=== PATIENT | female | born 1990 | race Caucasian/White ===

== ENCOUNTER → 2022-09-21 14:53 | Outpatient (BNVA) | payer OTHER, SELFPAY | PROVIDERS: PCP Internal Medicine; Visit Provider Nurse Practitioner Family | DX: G43.809 Other migraine, not intractable, without status migrainosus (principal); R42 Dizziness and giddiness | CPT/HCPCS: 99202 ==

== ENCOUNTER → 2022-12-27 15:37 | Outpatient (BNVA) | payer OTHER, SELFPAY | PROVIDERS: PCP Internal Medicine; Visit Provider Nurse Practitioner Family | DX: G43.809 Other migraine, not intractable, without status migrainosus (principal); R42 Dizziness and giddiness | CPT/HCPCS: 99212 ==

== ENCOUNTER 2024-06-15 10:46 | Outpatient (AMB) | payer OTHER, SELFPAY ==
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
[2024-06-15 10:59] VITALS: BP 114/78; PULSE 82; O2SAT 98; BMI 27.8
== END 2024-06-15 11:42 | disposition home or self-care (01) ==
PROVIDERS: PCP Internal Medicine; Visit Provider Nurse Practitioner Family
DX: S06.9X9A Unspecified intracranial injury with loss of consciousness of unspecified duration, initial encounter (principal); R90.82 White matter disease, unspecified; G43.809 Other migraine, not intractable, without status migrainosus
CPT/HCPCS: 99214

== ENCOUNTER → 2024-06-15 10:46 | Outpatient (BNVA) | payer OTHER, SELFPAY | PROVIDERS: PCP Internal Medicine; Visit Provider Nurse Practitioner Family | DX: S06.9X9A Unspecified intracranial injury with loss of consciousness of unspecified duration, initial encounter (principal); R90.82 White matter disease, unspecified; G43.809 Other migraine, not intractable, without status migrainosus | CPT/HCPCS: 99212 ==

== ENCOUNTER 2024-11-24 08:37 | Outpatient (AMB) | payer OTHER, SELFPAY ==
--- NOTE | 2024-11-24 08:39 | MHC.PC.OV ---
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 Is last menstrual period known: Yes Last menstrual period: 11/17/24 Post menopausal: No Patient : No Allergies No Known Allergies Allergy (Verified 11/24/24 09:03) Medication List - Last Reconciled 11/24/24 by Carolina Jeffery CNP cholecalciferol (vitamin D3) 25 mcg PO DAILY cyanocobalamin (vitamin B-12) (Vitamin B-12) 500 mcg PO DAILY magnesium oxide 400 mg PO BEDTIME 30 days meclizine 25 mg PO TID PRN 30 days Tobacco use date assessed: 11/24/24 Dental Screening Dental Screen Date: 11/24/24 Did you have a dental visit in the last 12 months?: Yes Did you have a dental problem in the last 6 months where you did not have access to dental care?: No Was dental information given to patient?: Patient has dentist HPI HPI Comments History of Present Illness Details 34-year-old female presents to establish care. Prior PCP? - Sindy Skaggs NP Last office visit/CPE/labs - 2.5 years ago Acute issue(s) - None Past Medical History - Migraine headaches, palpitations, vitamin D deficiency, vertigo, shingles, myopia, white matter abnormality on brain MRI Medications - On magnesium oxide 400 mg daily, Vitamin B12 500 mcg, and Migrelife supplements for migraine - On Meclizine 25 mg TID PRN for vertigo - On vitamin D3 25 mcg daily for vitamin D deficiency Surgical History - None Family History - Dad: Hyperlipidemia - Mom: Diabetes, hyperlipidemia - PGM: Cardiovascular disease Social History - Former smoker, smoked 3-4 cigarettes daily and quit 4 years ago. Does not vape. Does not drink alcohol. Denies recreational drug use - Has been making healthy dietary choices. Exercises routinely (walk). Generally sleep well Health maintenance - Last eye exam was almost a year ago. Has an eye exam appointment next month - Last dental visit was 6 months ago - Last tetanus vaccine was in 07/2023 - Up-to-date on the flu vaccine - Last pap smear test was in 09/2022 at [facility]: normal [facility] Medical History (Updated 11/24/24 @ 09:24 by Carolina Jeffery CNP) Shingles History of migraine headaches Heart palpitations Family History (Updated 11/24/24 @ 08:52 by Maggie Doyle) Maternal Grandfather No problems noted. Maternal Grandmother No problems noted. Paternal Grandfather No problems noted. Paternal Grandmother Cardiovascular disease Brother Substance abuse Father High cholesterol Mother High cholesterol Diabetes Social History Housing: House Alcohol intake: never Patient Tobacco Use Status: Former Tobacco user e-Cigarette/Vaping Use: Never Used service: No Current occupational status: employed Current occupation: RN Current occupational exposures/hazards: No Cognitive needs: No Hearing needs: No Vision needs: Yes Female Reproductive History Menstrual Date of last menstrual period: 11/17/24 Questionnaire PHQ-9 Over the last 2 weeks, how often have you been bothered by any of the following problems? 1. Little interest or pleasure in doing things: not at all 2. Feeling down, depressed, or hopeless: not at all 3. Trouble falling or staying asleep, or sleeping too much: more than half the days 4. Feeling tired or having little energy: more than half the days 5. Poor appetite or overeating: not at all 6. Feeling bad about yourself - or that you are a failure or have let yourself or your family down: not at all 7. Trouble concentrating on things, such as reading the newspaper or watching television: not at all 8. Moving or speaking so slowly that other people could have noticed. Or the opposite - being so fidgety or restless that you have been moving around a lot more than usual: not at all 9. Thoughts that you would be better off or of hurting yourself in some way: not at all Total score: 4 Depression Screening Interpretation: Negative Depression Screening Done: Yes 29774 - PHQ-9 Billing: Yes Source: Developed by Drs. Mata Cano, Giulia Huang, Marcin Watkins and colleagues, with an educational rahul from [employer] ([employer]). Thrive Questionnaire Date Thrive assessed: 11/24/24 I am a: Patient What is your living situation today?: I have a steady place to live Within the past 12 months, did the food you bought not last and you didn't have the money to get more?: Never true Within the past 12 months, did you worry whether your food would run out before you got money to buy more?: Never true Do you have trouble paying for medicines?: No Do you have trouble getting transportation to medical appointments?: No Do you have trouble paying your heating and electricity bill?: No Do you have trouble taking care of your child, family member or friend?: No Do you have trouble with day-to-day activities such as bathing, preparing meals, shopping, managing finances, etc.?: No Are you currently unemployed and looking for a job?: No Are you interested in more education?: No Please select the resources that you would like help with: None Currently or been in a relationship where the following occur: I choose not to answer THRIVE Score: 0 AUDIT C Alcohol Use Questionnaire (AUDIT-C) 1. How often do you have a drink containing alcohol?: Never Total Score: 0 Score Reviewed/Action Taken: Yes QUIRINO-7 AMB Questionnaire QUIRINO-7 Date QUIRINO - 7 assessed: 11/24/24 Feeling nervous, anxious, or on edge: 0 = Not at all Not being able to stop or control worryin = Not at all Worrying too much about different things: 0 = Not at all Trouble relaxin = Not at all Being so restless that it is hard to sit still: 0 = Not at all Becoming easily annoyed or irritable: 0 = Not at all Feeling afraid as if something awful might happen: 0 = Not at all Total QUIRINO-7 score (0-4 normal; 5-9 mild; 10-14 moderate; 15-21 severe): 0 Source: Developed by Drs. Mata Cano, Giulia Huang, Marcin Watkins and colleagues, with an educational rahul from [employer] ([employer]). QUIRINO-7 Assessment Billing QUIRINO-7 Assessment Tool: QUIRINO-7 Assessment 41162 Review of Systems Const Details: Denies chills, Denies fatigue, Denies fever(s), Denies headache(s) and Denies weakness HEENT Denies change in vision, Denies dizziness, Denies headache(s), Denies hearing loss, Denies nasal congestion, Denies sinus pain, Denies sinus pressure and Denies sore throat Card Denies chest pain, Denies lightheadedness, Denies dyspnea and Denies other (palpitations) Resp Denies cough, Denies dyspnea and Denies wheezing GI Denies abdominal pain, Denies melena, Denies hematochezia, Denies change in bowel habits, Denies dyspepsia and Denies nausea Denies hematuria and Denies dysuria Musc Denies abnormal gait, Denies myalgias, Denies arthralgias, Denies numbness and Denies tingling Skin/Breast Denies rash, Denies unusual bruising and Denies wounds Neuro Denies abnormal gait, Denies dizziness, Denies headache(s), Denies memory loss, Denies numbness, Denies Sensory deficit (Neuro), Denies tingling and Denies weakness Psych Denies anxiety, Denies depression and Denies memory loss Endo Denies cold intolerance, Denies fatigue, Denies heat intolerance, Denies polydipsia and Denies polyuria Ricardo/Lymph Denies easy bleeding and Denies easy bruising Aller/Immun Denies wheezing Physical exam (Primary Care) Vital Signs: Last Vital Signs Temp 98.8 F 11/24/24 08:45 Pulse 89 11/24/24 08:45 Resp 16 11/24/24 08:45 BP 126/84 11/24/24 08:45 Pulse Ox 99 11/24/24 08:45 Oxygen Delivery Method Room Air 11/24/24 08:45 BMI result Body Mass Index 28.0 Tobacco/Smoking Status: Tobacco use Status Tobacco use date assessed 11/24/24 11/24/24 08:45 Patient Tobacco Use Status Former Tobacco user 11/24/24 08:41 e-Cigarette/Vaping Use Never Used 11/24/24 08:45 PHQ-9: PHQ-9 Score PHQ-9: Total score 4 11/24/24 09:34 Depression Screening Interpretation: Negative Thrive Assessment: Date of Thrive Assessment Date Thrive assessed 11/24/24 11/24/24 08:41 Currently or been in a relationship where the following occur: I choose not to answer Const Other: General: no acute distress, well developed, alert and awake Nutritional Appearance: well nourished Orientation/consciousness: patient oriented x3 [facility] Head: Yes normocephalic and Yes atraumatic Ears: hearing grossly normal bilaterally and TM's normal bilaterally General nose exam: Normal external nose present and Normal nares present Mouth: Normal oral and palatal mucosa present and moist mucous membranes Teeth and gingiva: dentition normal Throat: Yes oropharynx normal Eyes Pupils: Equal, round and reactive pupils present and Pupil accommodation reflex normal EOM: EOMs intact bilaterally Neck Neck: Yes normal visual inspection, Yes no lymphadenopathy and Yes trachea midline Thyroid: Thyroid normal Carotids: no bruits Lymphatic: no lymphadenopathy noted Chest Chest palpation & inspection: normal inspection of the chest Resp Effort & Inspection: normal respiratory effort Auscultation: clear to auscultation bilaterally Cardio Rate: regular rate Rhythm: regular rhythm Heart sounds: S1 normal heart sound present, S2 normal heart sound present, no gallops, no murmurs and no rubs Bruits: no abdominal aortic bruits and no carotid bruits GI Palpation (GI): No Abdominal aortic bruit present, Soft to palpation, nontender, No hepatosplenomegaly present and No Rebound tenderness present Auscultation: normal bowel sounds General: Yes no CVA tenderness Back/Spine/Pelvis Back: no CVA tenderness Cervical Spine: cervical ROM normal and No Cervical spine tenderness Thoracic/Lumbar Spine: thoraco-lumbar ROM normal, No pain with thoraco-lumbar ROM, No thoracic spinal tenderness and No lumbar spinal tenderness Skin General: warm and dry. Normal skin color. Normal skin turgor Lesions: no lesions Rashes: no rashes Trauma: no lacerations or abrasions Wounds: no wounds Nails: normal Neuro General: patient oriented x3, gait normal and CN's II-XI intact bilaterally Cranial nerves: Yes Equal, round and reactive pupils present Cognition (Neuro): normal cognition Gait exam (Neuro): Normal gait present Motor exam (neuro): 5/5 motor strength present throughout Sensory Exam: No Sensory deficit (Neuro) Deep tendon reflexes (DTR's): Right patellar reflex intensity grade: 2+ and Left patellar reflex intensity grade: 2+ Extrem General: Yes normal to inspection, No edema and No calf tenderness Psych Appearance: grossly normal Affect: normal affect Attitude: cooperative Thought process: Normal thought process present Coding Level of Care Code New Pt Prev Care 18-39yr(40575 Diagnoses Normal physical examination, routine Z00.00 Vitamin D deficiency E55.9 Laboratory tests ordered as part of a complete physical exam (CPE) Z00.00 Additional Codes QUIRINO-7 Assessment Billing - QUIRINO-7 Assessment Tool: QUIRINO-7 Assessment 14160 ([id number]) PHQ-9 - 81738 - PHQ-9 Billing: Yes ([id number]) Assessment & Plan Assessment & Plan (1) Normal physical examination, routine: Code(s): Z00.00 - Encounter for general adult medical examination without abnormal findings Category: Medical Plan: No significant functional limitation noted. Continue current treatment regimen. Healthy diet and routine exercise encouraged. Advised to get lab work done 2-3 days before next visit. Follow-up for telehealth visit in 2 weeks or return sooner with symptoms or concerns. Verbalized understanding and agreed with the treatment plan. (2) Vitamin D deficiency: Code(s): E55.9 - Vitamin D deficiency, unspecified Category: Medical Plan: Continue current treatment. Will check vitamin-D level and make changes as needed. (3) Laboratory tests ordered as part of a complete physical exam (CPE): Code(s): Z00.00 - Encounter for general adult medical examination without abnormal findings Category: Medical Plan: Fasting labs ordered as part of a complete physical exam. Advised to fast for at least 10 hours before getting labs drawn. May drink water Verbalized understanding and agreed with treatment plan. Orders: Orders Complete Blood Count Auto Diff Today Z00.00 - Encounter for general adult medical examination without abnormal findings Comprehensive [place]. Panel Fast Today Z00.00 - Encounter for general adult medical examination without abnormal findings Lipid Panel Today Z00.00 - Encounter for general adult medical examination without abnormal findings TSH reflex Free T4 Today Z00.00 - Encounter for general adult medical examination without abnormal findings Vitamin D 25-OH Total Today E55.9 - Vitamin D deficiency, unspecified UA CC w/rflx Micro + Cult Today Z00.00 - Encounter for general adult medical examination without abnormal findings
[2024-11-24 08:45] VITALS: BP 126/84; PULSE 89; RESP 16; TEMP 37.1; O2SAT 99; BMI 28.0
--- OUTSIDE RECORDS SUMMARY | 2024-11-24 08:46 | XMS_ITS | Data Portability ---
Author Organization [facility] [address] Address [address] [place] [address] Assessment No assessment recorded. Plan of Treatment Reminders Order Date Submit Date Provider Last Modified By Organization Details Last Modified Time Details Appointments None recorded. Lab None recorded. Referral None recorded. Procedures None recorded. Surgeries None recorded. Imaging None recorded. Medication Orders valacyclovi r 1 gram tablet 2023 [id number], [address] [place], [address], 09:20:55 Patient TargetsNo targets recorded. Patient Instructions Encounter Date Encounter Id Patient Instructions Last Modified By Organization Details Last Modified Time 07/11/2024 [id number] shingles: care instructions [email or web address] Not available 07/11/2024 09:20:52 Reason for Referral None Reported. Problems Name Problem SNOMED Code Status Onset Date Resolution Date Notes Provider Name and Address Organization Details Recorded Time Herpes zoster [id number] Active 024 Claudia Jennings NP [address] [place] [address] [place], [address] , [facility] 07/11/2024 09:19:43 Problem Notes None recorded. Medical Equipment None Reported. Allergies No known drug allergies Medications Name Sig Start Date Stop Date Status Note LastModified by Organization Details LastModified Time amoxicillin 500 mg capsule TAKE 1 TABLET BY MOUTH EVERY 6 HOURS UNTIL GONE 07/11 completed Not Available Not Available Not Available valacyclovir 1 gram tablet Take 1 tablet every 12 hours by oral route for 7 days, for shingle s. 2023 active Not Available Not Available Not Avai lable Vitals Date Recorded Body height Body mass index (BMI) Body weight Oxygen saturation Oxygen saturation in Arterial blood by Pulse oximetry Heart rate Body temperature Systolic blood pressure Diastolic blood pressure Provider Name and Address Organization Details Last Updated DateTime 4 167.64 cm 27.6 kg/m2 40244.3 g 99 % 99 % 79 /min 98.3 [degF] 117 mm[Hg] 76 mm[Hg] Mely Hardin PA - [facility] 4 08:36:39 Social History Question Answer Notes LastModified by Organizat ion Details LastModified Time What Is Your Level Of Alcohol Consumption? None Information not available 07/11/2024 Are You Currently Employed? Yes Information not available 07/11/2024 Have You Had A Flu Shot This Season? Yes Information no t available 07/11/2024 If No, Would You Like A Flu Shot Today? No Information not available 07/11/2024 What Is Your Relationship Status? Information not available 07/11/2024 Are You Passively Exposed To Smoke? No Information no t available 07/11/2024 Do You Use Any Illicit Or Recreational Drugs? No Information not available 07/11/2024 Have You Recently Traveled Abroad? No Information not available 07/11/2024 Do You Or Have You Ever Used Any Other Forms Of Tobacco Or Nicotine? No Information not available 07/11/2024 Sex: Unknown Functional Status None recorded. Mental Status None recorded. Family History Nothing Reported. Medical History No medical history recorded. Gynecological History Statement/Question Response Date of LMP 07/01/2024 Is there any chance of ? No LMP N/A Obstetrics History GPAL:G 0 P 0 0 0 0 Past Encounters Encounter ID Performer Location Encounter Start Date Encounter Closed Date Diagnosis/Indication Diagnosis SNOMED-CT Code Diagnosis ICD10 Code [id number] [address] [address] 08/11/2020 17:17:56 08/11/2020 17:53:[id number] [address] 01/11/2022 15:05:53 01/11/2022 17:40:13 [id number] [address] [place] [address] 02/03/2020 11:44:52 02/03/2020 13:18:39 [id number] Claudia Jennings NP [address] [place] [address] 07/11/2024 08:18:40 07/11/2024 09:22:45 Herpes zoster [id number] B02.9 Health Concerns Section Related Observation LastModified by Organization Detai ls LastModified Time None Recorded Concern Status LastModified by Organization Details LastModified Time None Recorded Advance Directives Directive None Recorded Payers Encounter Date Sequence Insurance Name Policy Number Policy Grewal Covered Member ID Grewal Member ID Guarantor Name 07/11/2024 1 [facility] [id number] Carissa Hilario [id number] Carissa Hilario Notes Date Note Type Note Provider Name and Address Organization Details Recorded Time 07/11/2024 text/html Skin Redness UCReported bypatient.Quality:pa inful;erythematous;r aised Severity:moderate Duration:2 weeks Onset:gradual onset Alleviating factors:nothing gives relief Symptoms:no fever; no nausea; no vomiting 2 week ago abdominal area felt numb (right side) for 2 days, then pt noticed a rash patch (rash) right side pt was taking benadryl and hydrocortizone and didn't do nothing at all, rash travel to her spine . pt still experiencing pain abdominal are Claudia Jennings NP [address] [place], [address], [place] - [facility] 08/07/2024 20:51:10 OBGyn Episode No OBEpisode recorded.
== END 2024-11-24 09:23 | disposition home or self-care (01) ==
PROVIDERS: PCP Internal Medicine; Visit Provider Nurse Practitioner Family
DX: Z00.00 Encounter for general adult medical examination without abnormal findings (principal); E55.9 Vitamin D deficiency, unspecified

== ENCOUNTER → 2024-11-24 08:37 | Outpatient (BNVA) | payer OTHER, SELFPAY | PROVIDERS: PCP Internal Medicine; Visit Provider Nurse Practitioner Family | DX: Z00.00 Encounter for general adult medical examination without abnormal findings (principal); E55.9 Vitamin D deficiency, unspecified | CPT/HCPCS: 96127; 99385 ==

== ENCOUNTER 2024-12-07 09:16 | Outpatient (REF) | payer OTHER, SELFPAY ==
--- OUTSIDE RECORDS SUMMARY | 2024-12-07 09:38 | XMS_ITS | Data Portability ---
Author Organization [facility] [address] Address [address] [place] [address] Assessment No assessment recorded. Plan of Treatment Reminders Order Date Submit Date Provider Last Modified By Organization Details Last Modified Time Details Appointments None recorded. Lab None recorded. Referral None recorded. Procedures None recorded. Surgeries None recorded. Imaging None recorded. Medication Orders valacyclovi r 1 gram tablet 2023 [facility]/Pharmacy #[id number], [address] [place], [address], 09:20:55 Patient TargetsNo targets recorded. Patient Instructions Encounter Date Encounter Id Patient Instructions Last Modified By Organization Details Last Modified Time 07/11/2024 [id number] shingles: care instructions [email or web address] Not available 07/11/2024 09:20:52 Reason for Referral None Reported. Problems Name Problem SNOMED Code Status Onset Date Resolution Date Notes Provider Name and Address Organization Details Recorded Time Herpes zoster 5140506 Active 024 Claudia Jennings NP [address] [place] [address] [place], [address] , [facility] 07/11/2024 09:19:43 Problem [...] Updated DateTime 4 167.64 cm 27.6 kg/m2 97998.3 g 99 % 99 % 79 /min [...] Diagnosis/Indication Diagnosis SNOMED-CT Code Diagnosis ICD10 Code Diagnosis Note [id number] [address] [address] 08/11/2020 17:17:56 08/11/2020 17:53:[id number] [address] 01/11/2022 15:05:53 01/11/2022 17:40:13 [id number] [address] [address] 02/03/2020 11:44:52 02/03/2020 13:18:39 [id number] Claudia Jennings [place] [address] [address] 07/11/2024 08:18:40 07/11/2024 09:22:45 Herpes zoster 1107170 B02.9 Be safe with medicines. Take your medicines exactly as prescribed . Call your doctor if you think you are having a problem with your medicine. Antiviral medicine helps you get better faster.Try not to scratch or pick at the blisters.K eep the blisters moist until they heal over. One way to do this is to cover them with a thin layer of petroleum jelly, such as Vaseline, and a nonstick bandage.Ta ke an over-the-c ounter pain medicine, such as acetaminop hen (Tylenol), ibuprofen (Advil, Motrin), or naproxen (Aleve). Read and follow all instructio ns on the label.Avoi d close contact with people until the blisters have healed. It is very important for you to avoid contact with anyone who has never had chickenpox or the chickenpox vaccine. Young babies and anyone who is or has a hard time fighting infection (such as someone with HIV, diabetes, or cancer) are especially at risk.When should you call for help?Call your doctor now or seek immediate medical care if:You have a new or higher fever.You have a severe headache and a stiff neck.You lose the ability to think clearly.Th e rash spreads to your forehead, nose, eyes, or eyelids.Yo u have eye pain, or your vision gets worse.You have new pain in your face, or you can't move the muscles in your face.Blist ers spread to new parts of your body.You have symptoms of infection, such as increased pain, swelling, warmth, or redness. Health Concerns Section Related Observation LastModified by Organization Detai ls LastModified Time None Recorded Concern Status LastModified by Organization Details LastModified Time None Recorded Advance Directives Directive None Recorded Payers Encounter Date Sequence Insurance Name Policy Number Policy Grewal Covered Member ID Grewal Member ID Guarantor Name 07/11/2024 1 [facility] [id number] Carissa Hilario [id number] Carissa Hilario Notes Date Note Type [...] Claudia Jennings NP [address] [place], [address], [place] - [facility] 08/07/2024 20:51:10 OBGyn Episode No OBEpisode recorded.
[2024-12-07 11:25] LABS: Appearance Urine Clear; Color Urine Yellow; Glucose Urine UA Negative (Negative); Leukocyte Esterase Urine Negative (Negative); Nitrite Urine Negative (Negative); Specific Gravity - Urine <= 1.005 (1.005-1.025); Urine Blood Negative (Negative); Urine Ketones Negative (Negative); Urine Protein Negative (Neg-Trace)
[2024-12-07 11:42] LABS: MANUAL DIFF FLAG NO
[2024-12-07 11:46] LABS: Basophils Percent Auto 0.3 % (0-2); Eosinophils Absolute Auto 0.1 X10*3/uL (0.0-0.4); Eosinophils Percent Auto 1.5 % (0-4); Hematocrit 39.8 % (37.0-47.0); Imm Gran Abs Auto 0.02 X10*3/uL (0.00-0.03); Imm Gran Pct Auto 0.3 % (0.0-0.4); Lymphocytes Absolute Auto 2.3 X10*3/uL (1.2-4.9); Lymphocytes Percent Auto 39.8 % (20-40); Mean Corpuscular HGB Conc 35.2 g/dl (31.0-35.0); Mean Corpuscular Hemoglobin 30.3 pg (27.0-33.0); Mean Corpuscular Volume 86.1 fL (80.0-98.0); Monocytes Absolute Auto 0.3 X10*3/uL (0.1-1.2); Monocytes Percent Auto 4.4 % (2-11); Neutrophils Absolute Auto 3.1 x10*3/uL (2.0-8.3); Neutrophils Percent Auto 53.7 % (45-73); Platelet Count 238 X10*3/uL (160-400); Red Blood Count 4.62 X10*6/uL (4.20-5.50); Red Cell Distribution Width 11.9 % (11.0-16.0); White Blood Count 5.9 X10*3/uL (4.8-10.8)
[2024-12-07 13:16] LABS: Alanine Aminotransferase 26 U/L (0-31); Albumin Level 4.9 g/dL (3.5-5.0); Alkaline Phosphatase 32 U/L (39-117); Anion Gap 9 (12-20); Aspartate Amino Transferase 17 U/L (5-31); Bilirubin Total 0.7 mg/dL (0.0-1.0); Blood Urea Nitrogen 7 mg/dL (9-16); Calcium 9.9 mg/dL (8.4-10.2); Carbon Dioxide 27 mmol/L (22-29); Chloride 108 mmol/L (96-108); Cholesterol 196 mg/dL (<200); Estimated Glomerular Filt Rate > 60; Glucose Fasting 83 mg/dL (60-99); HDL Cholesterol 48 mg/dL (>40); LDL Cholesterol Calculated 130 mg/dL (<100); Potassium 3.9 mmol/L (3.3-5.1); Sodium 140 mmol/L (135-145); TSH reflex Free T4 0.88 uIU/mL (0.32-4.0); Total Protein 7.8 g/dL (6.5-8.0); Triglycerides 93 mg/dL (<150); Vitamin D 25-OH Total 56.3 ng/mL (>30)
== END 2024-12-07 09:17 | disposition home or self-care (01) ==
LOC: HO.WFDLDS 09:16
PROVIDERS: Visit Provider Nurse Practitioner Family
DX: Z00.00 Encounter for general adult medical examination without abnormal findings (principal); E55.9 Vitamin D deficiency, unspecified
CPT/HCPCS: 36415; 80053; 80061; 81003; 82306; 84443; 85025

== ENCOUNTER 2024-12-09 12:04 | Outpatient (AMB) | payer OTHER, SELFPAY ==
--- NOTE | 2024-12-09 11:34 | A.OFFPC_ITS ---
Intake Visit Reasons: 2 wks Telehealth labs review Intake Note: patient here for telehealth for lab review Supervisor D[employer] Required: No Is last menstrual period known: Yes Last menstrual period: 11/18/24 Post menopausal: No Patient : No Allergies No Known Allergies Allergy (Verified 12/09/24 11:35) Tobacco use date assessed: 12/09/24 Dental Screening Dental Screen Date: 12/09/24 Did you have a dental visit in the last 12 months?: Yes Did you have a dental problem in the last 6 months where you did not have access to dental care?: No Was dental information given to patient?: Patient has dentist HPI HPI Comments History of Present Illness Details 34-year-old female [facility] for review of recent lab results. She offers no complaints and denies acute symptoms at this time. [facility] Medical History (Updated 12/09/24 @ 12:52 by Carolina Jeffery CNP) Shingles History of migraine headaches Heart palpitations Family History (Updated 11/24/24 @ 08:52 by Maggie Doyle) Maternal Grandfather No problems noted. Maternal Grandmother No problems noted. Paternal Grandfather No problems noted. Paternal Grandmother Cardiovascular disease Brother Substance abuse Father High cholesterol Mother High cholesterol Diabetes Social History (Reviewed 06/15/24 @ 11:01 by Lynn Iraheta [facility]) Housing: House Alcohol intake: never Patient Tobacco Use Status: Former Tobacco user e-Cigarette/Vaping Use: Never Used Patient : No service: No Current occupational status: employed Current occupation: RN Current occupational exposures/hazards: No Cognitive needs: No Hearing needs: No Vision needs: Yes Female Reproductive History Menstrual Date of last menstrual period: 11/18/24 Questionnaire Thrive Questionnaire Date Thrive assessed: 11/24/24 QUIRINO-7 AMB Questionnaire QUIRINO-7 Date QUIRINO - 7 assessed: 11/24/24 Source: Developed by Drs. Mata Cano, Giulia Huang, Marcin Watkins and colleagues, with an educational rahul from [employer]. Review of Systems Const Details: Denies chills, Denies fatigue, Denies fever(s), Denies headache(s) and Denies weakness Cardiac Denies chest pain, Denies claudication, Denies leg edema, Denies lightheadedness, Denies palpitations, Denies dyspnea, Denies dyspnea on exertion, Denies orthopnea and Denies other (Loss of consciousness) Resp Denies cough, Denies excessive phlegm production, Denies dyspnea, Denies dyspnea on exertion, Denies snoring and Denies wheezing Physical exam (Primary Care) Tobacco/Smoking Status: Tobacco use Status Tobacco use date assessed 12/09/24 12/09/24 11:36 Patient Tobacco Use Status Former Tobacco user 12/09/24 11:36 e-Cigarette/Vaping Use Never Used 12/09/24 11:36 Thrive Assessment: Date of Thrive Assessment Date Thrive assessed 11/24/24 12/09/24 11:36 Const Other: Telehealth visit. No physical exam. Telehealth Telehealth Telehealth Platform: Telephone Location of provider rendering services: practice address Location of patient: address on file Patient Identification confirmed using: Name, : Yes Telehealth method: voice only Patient verbally consented to treatment: Yes Patient verbally consented to billing insurance company: Yes Patient informed of any privacy concerns related to visit: Yes Coding Level of Care Code Tele Est Pt Level 3 (22410) Diagnoses Elevated LDL cholesterol level E78.00 Vitamin D deficiency E55.9 Time Spent (min) 10 Assessment & Plan Assessment & Plan (1) Elevated LDL cholesterol level: Code(s): E78.00 - Pure hypercholesterolemia, unspecified Category: Medical Plan: Recent labs are reassuring, except for slightly elevated LDL, 130. Advised to limit foods high in saturated fat and avoid foods high in trans fat. Routine exercise encouraged. Advised to fast for 10-12 hours, may drink water, and perform blood work 2-3 days before her next visit. Follow-up for telehealth visit in 3 months or return sooner with symptoms or concerns. Verbalized understanding and agreed with treatment plan. (2) Vitamin D deficiency: Code(s): E55.9 - Vitamin D deficiency, unspecified Category: Medical Plan: Recent vitamin-D levels normal. Continue current treatment regimen. Verbalized understanding and agreed with the plan. Orders: Orders Lipid Panel 3 Months E78.00 - Pure hypercholesterolemia, unspecified
== END 2024-12-09 13:17 | disposition home or self-care (01) ==
PROVIDERS: PCP Nurse Practitioner Family; Visit Provider Nurse Practitioner Family
DX: E78.00 Pure hypercholesterolemia, unspecified (principal); E55.9 Vitamin D deficiency, unspecified

== ENCOUNTER → 2024-12-09 12:04 | Outpatient (BNVA) | payer OTHER, SELFPAY | PROVIDERS: PCP Nurse Practitioner Family; Visit Provider Nurse Practitioner Family ==

== ENCOUNTER 2025-03-03 08:09 | Outpatient (REF) | payer OTHER, SELFPAY ==
--- OUTSIDE RECORDS SUMMARY | 2025-03-03 08:18 | XMS_ITS | Clinical Summary ---
Author Organization [facility] Address [address] [place] [address] Care Team Providers Care Referral Specialist Name Role Phone Unavailable Primary Care Provider Unavailabl e Social History Tobacco Use Types Packs/Day Years Used Date Smoking Tobacco: Never Assessed Comments Unknown Sex and Gender Information Value Date Recorded Sex Assigned at Not on file Legal Sex Female 9:36 AM EST Gender Identity Not on file Sexual Orientation Not on file Plan of Treatment Health Maintenance Due Date Last Done Comments HIV screening 2003 Hepatitis C screening 2008 Tetanus adult (Td q 10,TDAP once) 2010 Influenza vaccine 07/02/2024 Covid-19 vaccine series (2023- season) 2024 RSV Immunization (1 - 1-dose 75+ series) 2065 Meningococcal Vaccine Aged Out No john ruth eligible based on patient's age to complete this topic Pneumococcal Vaccine (2 - 49 years) Aged Out No longer eligible based on patient's age to complete this topic
--- OUTSIDE RECORDS SUMMARY | 2025-03-03 08:18 | XMS_ITS | Data Portability ---
Author Organization [facility] [address] Address [address] [place] [address] Assessment No assessment recorded. Plan of Treatment Reminders Order Date Submit Date Provider Last Modified By Organization Details Last Modified Time Details Appointments None recorded. Lab None recorded. Referral None recorded. Procedures None recorded. Surgeries None recorded. Imaging None recorded. Medication Orders valacyclovi r [address] [facility] [place]Pharmacy #[id number], [address] [place], [address], 09:20:55 Patient TargetsNo targets recorded. Patient Instructions Encounter Date Encounter Id Patient Instructions Last Modified By Organization Details Last Modified Time 07/11/2024 [id number] shingles: care instructions [email or web address] Not available 07/11/2024 09:20:52 Reason for Referral None Reported. Problems Name Problem SNOMED Code Status Onset Date Resolution Date Notes Provider Name and Address Organization Details Recorded Time Herpes zoster [id number] Active 024 Claudia Jennings NP [address] [place] [address] [place], [address] , [facility] 07/11/2024 09:19:43 Problem [...] by Pulse oximetry Heart rate Body temperature Pain severity - 0-10 verbal numeric rating [Score] - Reported Systolic blood pressure Diastolic blood pressure Provider Name and Address Organization Details Last Updated DateTime 4 167.64 cm 27.6 kg/m2 29556.3 g 99 % 99 % 79 /min 98.3 [degF] 7 117 mm[Hg] 76 mm[Hg] Mely Hardin PA [...] SNOMED-CT Code Diagnosis ICD10 Code Diagnosis Note [id number] [address] [address] 08/11/2020 17:17:56 08/11/2020 17:53:44 [id number] [address] [address] 01/11/2022 15:05:53 01/11/2022 17:40:13 [id number] [address] [address] 02/03/2020 11:44:52 02/03/2020 13:18:39 [id number] Claudia Jennings, LINDSEY [address] [address] 07/11/2024 08:18:40 07/11/2024 09:22:45 Herpes zoster 9981670 B02.9 Be safe with medicines. Take your [...] Grewal Member ID Guarantor Name 07/11/2024 1 [facility] [id number] Carissa Hilario [id number] Carissa Hilario Notes Date Note Type [...] Claudia Jennings NP [address] [place], [address], [place] - [facility] 08/07/2024 20:51:10 OBGyn Episode No OBEpisode recorded.
--- OUTSIDE RECORDS SUMMARY | 2025-03-03 08:18 | XMS_ITS | Clinical Summary ---
Author Organization [facility] Address [address] [place] [address] Phone Care Team Providers Care Last Pattern Grader Name Role Phone Jean Carlos Posey MD Primary Care Provider Allergies No known active allergies Medications cholecalciferol (VITAMIN D-3) 50 mcg (2,000 unit) capsule Take 1 Tablet by mouth daily. 2 Active MAGNESIUM ORAL Magnesium 400 MG Tab Sig - Route: Take by mouth. - Oral Active cyanocobalamin (VITAMIN B-12) 500 mcg tablet Take by mouth. Active calcium carbonate 1,500 mg (600 mg elemental calcium) tablet Take 600 mg by mouth daily. Active SUMAtriptan (IMITREX) 50 mg tablet Take 1 Tablet by mouth as needed for Migraine. May repeat dose once after 2 hours, if needed. No more than 2 tabs in 24 hrs. 2 Active varenicline (CHANTIX) 1 mg tablet Take 1 Tab by mouth 2 times daily. 7 Active levonorgestreL (MIRENA) 21 mcg/24hr (up to 8 yrs) 52 mg IUD 1 Each by Intrauterine route once. Active Active Problems Problem Noted Date Diagnosed Date Cold sore 03/22/2022 Vitamin D deficiency 03/22/2022 Back pain 12/26/2012 Immunizations Name Administration Dates Next Due Hep B, Unspecified 06/03/2013 Influenza trivalent, 0.5mL, preservative free (Fluarix; FluLaval; Fluzone) ages 6mo and older (Afluria) 3 years and older 11/03/2015 Measles 06/03/2013 Mumps 06/03/2013 PPD Test 10/06/2013 Rubella 06/03/2013 Tdap Tetanus diptheria acell ular pertussis (Boostrix; Adacel) 7yo and older 03/10/2013 Varicella live (Varivax) 12mo and older 01/22/20 14,10/06/2013 Surgical History Surgery Date Site/Laterality Comments OTHER SURGICAL HISTORY PROCEDURE: DENIES PREVIOUS SURGERY Medical History Medical History Date Comments Chronic back pain DX:Chronic star k pain H. pylori infection DX:H. pylori infection Family History Medical History Relation Name Comments Breast cancer Neg Hx Cervical cancer Neg Hx Colon cancer Neg Hx Relation Name Status Comments Brother 1 Alive A&W Brother 2 Alive A&W Brother 3 Alive A&W Father Alive A&W Maternal Grandfather (Age old ag e) Maternal Grandmother (Age old ag e) Mother Alive A&W Paternal Grandfather (Age old ag e) Paternal Grandmother (Age old ag e) Sister Alive A&W Son Alive Healthy, Amalia bhakti, 2012 Social History Tobacco Use Types Packs/Day Years Used Date Smoking Tobacco: Former Cigarettes Smokeless Tobacco: Never Alcohol Use Standard Drinks/Week Comments No 0 (1 standard drink = 0.6 oz pur e alcohol) Comments Unknown Sex and Gender Information Value Date Recorded Sex Assigned at Not on file Legal Sex Female 1:34 PM EST Gender Identity Not on file Sexual Orientation Not on file Obstetrics History Last Filed Vital Signs Vital Sign Reading Time Taken Comments Blood Pressure 100/62 01/24/2023 3:47 PM EST Pulse 78 01/24/2023 3:47 PM EST Temperature - - Respiratory Rate - - Oxygen Saturation - - Inhaled Oxygen Concentration - - Weight 76 kg (167 lb 8 oz) 01/24/2023 3:47 PM ES T Height 165.1 cm (5' 5 ) 01/24/2023 3:47 PM EST Body Mass Index 27.87 01/24/2023 3:47 PM EST Plan of Treatment Upcoming Encounters Date Type Department Care Team (Late st Contact Info) Description 03/16/2025 11:30 AM EDT Office Visit Obstetrics and Gynecology - [address] [address] Opal Brandon CNM [address] [place] [address] 05/14/2025 2:30 PM EDT Office Visit Obstetrics and Gynecology - [place] [address] [place] [address] Cierra Carty, [address] [address] [place] [address] Health Maintenance Due Date Last Done Comments Hepatitis B Vaccines (2 of 3 - 19+ 3-dose series) 07/01/2013 06/03/2013 Depression Screening 10/30/2022 HIV Screening 10/30/2022 Social Influencers of Health Screening 10/30/2022 DTaP,Tdap,and Td Vaccines (2 - Td or Tdap) 03/10/2023 03/10/2013 COVID-19 Vaccine (4 - 2023-2 5 season) 2024 02/02/2022, 07/25/2021, 06/27/2021 Influenza Vaccine (#1) 2024 11/03/2015 Cervical Cancer Screening: HPV 09/17/2027 09/17/2022 Varicella Vaccines Aged Out 01/22/2014, 10/06/2013 No longer eligible based on patient's age to complete this topic Hepatitis C Screening Completed 09/17/2022 HIB Vaccines Aged Out No longer eligi ble based on patient's age to complete this topic HPV Vaccines Aged Out No longer eligi ble based on patient's age to complete this topic Hepatitis A Vaccines Aged Out No long er eligible based on patient's age to complete this topic IPV Vaccines Aged Out No longer eligi ble based on patient's age to complete this topic MMR Vaccines Aged Out No longer eligi ble based on patient's age to complete this topic Meningococcal ACWY Vaccine Aged Out N o longer eligible based on patient's age to complete this topic Meningococcal B Vacine Aged Out No lo nger eligible based on patient's age to complete this topic Pneumococcal Vaccine: Pediatrics (0 to 5 Years) and At-Risk Patients (6 to 64 Years) Aged Out No longer eligible b ased on patient's age to complete this topic RSV Immunization Patients Under 20 months Aged Out No longer eligible b ased on patient's age to complete this topic Procedures Procedure Name Priority Date/Time Associated Diagnosis Comments HPV Routine 09/17/2022 HEPATITIS C SCREENING Routine 09/17/2022 from Last 3 Months or Most Recently Relevant to Health Maintenance Results * Cervical Cancer Screening: HPV (09/17/2022) Cervical Cancer Screening: HPV negative, abstracted Historical Provider HEALTH MAINTENANCE Final Result * Hepatitis C Screening (09/17/2022) Hepatitis C Screening abstracted Historical Provider HEALTH MAINTENANCE Final Result from Last 3 Months or Most Recently Relevant to Health Maintenance Insurance [facility] [employer] Care Teams Last Pattern Grader Relationship Specialty Start Date End Date Jean Carlos Posey MD [address] [place] [address] PCP - General Internal Medicine 03/21/22
[2025-03-03 11:46] LABS: Cholesterol 171 mg/dL (<200); HDL Cholesterol 40 mg/dL (>40); LDL Cholesterol Calculated 115 mg/dL (<100); Triglycerides 80 mg/dL (<150)
== END 2025-03-03 08:10 | disposition home or self-care (01) ==
LOC: HO.WFDLDS 08:09
PROVIDERS: Visit Provider Nurse Practitioner Family
DX: E78.00 Pure hypercholesterolemia, unspecified (principal)
CPT/HCPCS: 36415; 80061

== ENCOUNTER 2025-03-09 16:34 | Outpatient (AMB) | payer OTHER, SELFPAY ==
--- NOTE | 2025-03-09 16:21 | MHC.PC.OV ---
Intake Visit Reasons: 3 mth f/u labs Intake Note: Three month follow up Assisted Living Administrator Required: No Allergies No Known Allergies Allergy (Verified 03/09/25 16:21) Tobacco use date assessed: 12/09/24 Dental Screening Dental Screen Date: 12/09/24 HPI HPI Comments History of Present Illness Details 34-year-old female presents for telehealth visit for review of recent lab results. She offers no complaints and denies acute symptoms at this time. [facility] Medical History (Updated 03/09/25 @ 16:37 by Carolina Jeffery CNP) Shingles History of migraine headaches Heart palpitations Family History Maternal Grandfather No problems noted. Maternal Grandmother No problems noted. Paternal Grandfather No problems noted. Paternal Grandmother Cardiovascular disease Brother Substance abuse Father High cholesterol Mother High cholesterol Diabetes Social History (Updated 03/09/25 @ 16:24 by Kristen Cruz CMA) Housing: House Alcohol intake: never Patient Tobacco Use Status: Former Tobacco user e-Cigarette/Vaping Use: Never Used service: No Current occupational status: employed Current occupation: RN Current occupational exposures/hazards: No Cognitive needs: No Hearing needs: No Vision needs: Yes Questionnaire Thrive Questionnaire Date Thrive assessed: 11/24/24 QUIRINO-7 AMB Questionnaire QUIRINO-7 Date QUIRINO - 7 assessed: 11/24/24 Source: Developed by Drs. Mata Cano, Giulia Huang, Marcin Watkins and colleagues, with an educational rahul from [employer]. Review of Systems Const Details: Denies chills, Denies fatigue, Denies fever(s), Denies headache(s) and Denies weakness Cardiac Denies chest pain, Denies claudication, Denies leg edema, Denies lightheadedness, Denies palpitations, Denies dyspnea, Denies dyspnea on exertion, Denies orthopnea and Denies other (Loss of consciousness) Resp Denies cough, Denies excessive phlegm production, Denies dyspnea, Denies dyspnea on exertion, Denies snoring and Denies wheezing Physical exam (Primary Care) Tobacco/Smoking Status: Tobacco use Status Tobacco use date assessed 12/09/24 03/09/25 16:25 Patient Tobacco Use Status Former Tobacco user 03/09/25 16:25 e-Cigarette/Vaping Use Never Used 03/09/25 16:25 Thrive Assessment: Date of Thrive Assessment Date Thrive assessed 11/24/24 03/09/25 16:25 Const Other: Patient is alert and oriented x3. Telehealth Telehealth Telehealth Platform: Telephone Location of provider rendering services: practice address Location of patient: address on file Patient Identification confirmed using: Name, : Yes Telehealth method: voice only Patient verbally consented to treatment: Yes Patient verbally consented to billing insurance company: Yes Patient informed of any privacy concerns related to visit: Yes Coding Level of Care Code Tele Est Pt Level 3 (10311) Diagnoses Dyslipidemia E78.5 Time Spent (min) 15 Assessment & Plan Assessment & Plan (1) Dyslipidemia: Code(s): E78.5 - Hyperlipidemia, unspecified Category: Medical Plan: Recent LDL is slightly elevated, 115 from 130. HDL is slightly low, 40. Advised to limit foods high in saturated fat and avoid foods high in trans fat. Routine exercise encouraged. Fast for 10-12 hours, may drink water, and perform lipid panel blood work 2-3 days before next visit. Follow-up for a telehealth visit for dyslipidemia in 3 months. Return sooner with symptoms or concerns. Verbalized understanding and agreed with the plan. Orders: Orders Lipid Panel 3 Months E78.5 - Hyperlipidemia, unspecified
--- OUTSIDE RECORDS SUMMARY | 2025-03-09 19:07 | XMS_ITS | Clinical Summary ---
Author Organization [facility] Address [address] [place] [address] Phone Care Team Providers Care Steel Rule Die Maker Apprentice Name Role Phone Jena Carlos Posey MD Primary Care Provider Allergies [...] EDT Office Visit Obstetrics and Gynecology - [address] [address] Opal Brandon CNM [address] [place] [address] 05/14/2025 2:30 PM EDT Office Visit Obstetrics and Gynecology - [place] [address] [place] [address] Cierra Carty, EVERARDO [address] [place] [address] Health Maintenance Due Date Last Done Comments [...] age to complete this topic Meningococcal B Vaccine Aged Out No l onger eligible based on patient's age to complete [...] Cancer Screening: HPV negative, abstracted Historical Provider MD HEALTH MAINTENANCE Final Result * Hepatitis C Screening (09/17/2022) Hepatitis C Screening abstracted Historical Provider HEALTH MAINTENANCE Final Result from Last 3 Months or Most Recently Relevant to Health Maintenance Insurance [facility] [employer] Care Teams Steel Rule Die Maker Apprentice Relationship Specialty Start Date End Date Jean Carlos Posey MD [address] [place] [address] PCP - General Internal Medicine 03/21/22
--- OUTSIDE RECORDS SUMMARY | 2025-03-09 19:07 | XMS_ITS | Data Portability ---
Author Organization [facility] [address] Address [address] [place] [address] Assessment No assessment recorded. Plan of Treatment Reminders Order Date Submit Date Provider Last Modified By Organization Details Last Modified Time Details Appointments None recorded. Lab None recorded. Referral None recorded. Procedures None recorded. Surgeries None recorded. Imaging None recorded. Medication Orders valacyclovi r 1 gram tablet 2023 [facility]/Pharmacy #[id number], [address] [place], [address], 09:20:55 Patient TargetsNo targets recorded. Patient Instructions Encounter Date Encounter Id Patient Instructions Last Modified By Organization Details Last Modified Time 07/11/2024 [id number] shingles: care instructions [email or web address] Not available 07/11/2024 09:20:52 Reason for Referral None Reported. Problems Name Problem SNOMED Code Status Onset Date Resolution Date Notes Provider Name and Address Organization Details Recorded Time Herpes zoster 5022971 Active 024 Claudia Jennings NP [address] [place] [address] [place], [address] , [facility] 07/11/2024 09:19:43 Problem [...] Updated DateTime 4 167.64 cm 27.6 kg/m2 40775.3 g 99 % 99 % 79 /min [...] SNOMED-CT Code Diagnosis ICD10 Code Diagnosis Note [id number] [address] [address] 08/11/2020 17:17:56 08/11/2020 17:53:[id number] [address] 01/11/2022 15:05:53 01/11/2022 17:40:13 [id number] [address] [address] 02/03/2020 11:44:52 02/03/2020 13:18:39 [id number] Claudia Jennings, LINDSEY [address] [address] 07/11/2024 08:18:40 07/11/2024 09:22:45 Herpes zoster 7061161 B02.9 Be safe with medicines. Take your [...] Grewal Member ID Guarantor Name 07/11/2024 1 [facility] [id number] Carissa Hilario [id number] Carissa Hilario Notes Date Note Type [...] Claudia Jennings NP [address] [place], [address], [place] - [facility] 08/07/2024 20:51:10 OBGyn Episode No OBEpisode recorded.
--- OUTSIDE RECORDS SUMMARY | 2025-03-09 19:07 | XMS_ITS | Clinical Summary ---
Author Organization [facility] Address [address] [place] [address] Care Team Providers Care Banking Services Officer Name Role Phone Unavailable Primary Care Provider [...] Tetanus adult (Td q 10,TDAP once) 2010 Covid-19 vaccine series (2023- season) 2024 Influenza vaccine 08/02/2025 RSV Immunization (1 - 1-dose 75+ series) 2065 Meningococcal Vaccine Aged Out No john ruth eligible based on patient's age to complete this topic Pneumococcal Vaccine (2 - 49 years) Aged Out No longer eligible based on patient's age to complete this topic
== END 2025-03-09 16:59 | disposition home or self-care (01) ==
LOC: HO.HMCFM 16:34
PROVIDERS: PCP Nurse Practitioner Family; Visit Provider Nurse Practitioner Family
DX: E78.5 Hyperlipidemia, unspecified (principal)

== ENCOUNTER → 2025-03-09 16:34 | Outpatient (BNVA) | payer OTHER, SELFPAY | PROVIDERS: PCP Nurse Practitioner Family; Visit Provider Nurse Practitioner Family ==

== ENCOUNTER 2025-10-01 10:48 | Outpatient (AMB) | payer OTHER, SELFPAY ==
--- NOTE | 2025-10-01 10:50 | MHC.PC.OV ---
Vital Signs 10/01/25 10:56 Height 5 ft 5 in Weight 139 lb BMI 23.1 BP 110/63 Blood Pressure Location Lt brachial Position Sitting Respiration 16 Pulse 80 Pulse Source Pulse Oximeter Temp 97.9 F Temp Source Oral Pulse Oximetry (%) 99 Oxygen Delivery Method Room Air Intake Visit Reasons: speech therapy referral request Intake Note: patient here to request a referral to speech therapy Claims Processor Required: No Is last menstrual period known: Yes Last menstrual period: 09/03/25 Post menopausal: No Patient : No Allergies No Known Allergies Allergy (Verified 10/01/25 11:12) Medication List - Last Reconciled 10/01/25 by Carolina Jeffery CNP cholecalciferol (vitamin D3) 25 mcg PO DAILY cyanocobalamin (vitamin B-12) (Vitamin B-12) 500 mcg PO DAILY magnesium oxide 400 mg PO BEDTIME 30 days meclizine 25 mg PO TID PRN 30 days semaglutide (weight loss) subcut Tobacco use date assessed: 10/01/25 Dental Screening Dental Screen Date: 10/01/25 Did you have a dental visit in the last 12 months?: No Did you have a dental problem in the last 6 months where you did not have access to dental care?: No Was dental information given to patient?: Patient has dentist HPI HPI Comments History of Present Illness Details 34-year-old female presents with request for speech therapy referral. She has an appointment for speech therapy with Leon in 10/05/2025. She notes that she has been having difficulty expressing herself in a organized way, ever since i remember myself. She reports difficulty with expression in both Portuguese and Barbadian (her [place] language). She thinks that her symptoms may be related to anxiety. She is only anxious when talking to people. She denies associated symptoms or depression. She has never been seen for this in the past. She has never had psychotherapy or pharmacotherapy for anxiety. However, she is open to psychotherapy for her anxiety. She notes that She had speech therapy at childhood for expression and pronunciation. She denies anxiety at this time. [facility], [facility] Medical History (Updated 10/01/25 @ 11:26 by Carolina Jeffery CNP) Shingles History of migraine headaches Heart palpitations Family History Maternal Grandfather No problems noted. Maternal Grandmother No problems noted. Paternal Grandfather No problems noted. Paternal Grandmother Cardiovascular disease Brother Substance abuse Father High cholesterol Mother High cholesterol Diabetes Social History (Updated 03/09/25 @ 16:24 by Kristen Cruz [facility]) Housing: House Alcohol intake: never Patient Tobacco Use Status: Former Tobacco user e-Cigarette/Vaping Use: Never Used Second Hand Smoke Exposure: No Patient : No service: No Current occupational status: employed Current occupation: RN Current occupational exposures/hazards: No Cognitive needs: No Hearing needs: No Vision needs: Yes Female Reproductive History Menstrual Date of last menstrual period: 09/03/25 Questionnaire PHQ-9 Over the last 2 weeks, how often have you been bothered by any of the following problems? 1. Little interest or pleasure in doing things: not at all 2. Feeling down, depressed, or hopeless: not at all 3. Trouble falling or staying asleep, or sleeping too much: not at all 4. Feeling tired or having little energy: not at all 5. Poor appetite or overeating: not at all 6. Feeling bad about yourself - or that you are a failure or have let yourself or your family down: not at all 7. Trouble concentrating on things, such as reading the newspaper or watching television: not at all 8. Moving or speaking so slowly that other people could have noticed. Or the opposite - being so fidgety or restless that you have been moving around a lot more than usual: not at all 9. Thoughts that you would be better off or of hurting yourself in some way: not at all Total score: 0 Source: Developed by Drs. Mata Cano, Giulia Huang, Marcin Watkins and colleagues, with an educational rahul from [employer]. Thrive Questionnaire Date Thrive assessed: 11/24/24 I am a: Patient What is your living situation today?: I have a steady place to live Within the past 12 months, did the food you bought not last and you didn't have the money to get more?: I choose not to answer this question Within the past 12 months, did you worry whether your food would run out before you got money to buy more?: I choose not to answer this question Do you have trouble paying for medicines?: I choose not to answer this question Do you have trouble getting transportation to medical appointments?: I choose not to answer this question Do you have trouble paying your heating and electricity bill?: I choose not to answer this question Do you have trouble taking care of your child, family member or friend?: I choose not to answer this question Do you have trouble with day-to-day activities such as bathing, preparing meals, shopping, managing finances, etc.?: I choose not to answer this question Are you currently unemployed and looking for a job?: I choose not to answer this question Are you interested in more education?: I choose not to answer this question Please select the resources that you would like help with: Transportation and None Currently or been in a relationship where the following occur: I choose not to answer THRIVE Score: 0 AUDIT C Alcohol Use Questionnaire (AUDIT-C) 1. How often do you have a drink containing alcohol?: Never Total Score: 0 Score Reviewed/Action Taken: Yes QUIRINO-7 AMB Questionnaire QUIRINO-7 Date QUIRINO - 7 assessed: 11/24/24 Feeling nervous, anxious, or on edge: 0 = Not at all Not being able to stop or control worryin = Not at all Worrying too much about different things: 0 = Not at all Trouble relaxin = Not at all Being so restless that it is hard to sit still: 0 = Not at all Becoming easily annoyed or irritable: 0 = Not at all Feeling afraid as if something awful might happen: 0 = Not at all Total QUIRINO-7 score (0-4 normal; 5-9 mild; 10-14 moderate; 15-21 severe): 0 Source: Developed by Drs. Mata Cano, Giulia Huang, Marcin Watkins and colleagues, with an educational rahul from [employer]. Review of Systems Const Details: Denies chills, Denies fatigue, Denies fever(s), Denies headache(s) and Denies weakness HEENT Denies change in vision, Denies dizziness, Denies headache(s), Denies hearing loss, Denies nasal congestion, Denies sinus pain, Denies sinus pressure and Denies sore throat Card Denies chest pain, Denies lightheadedness, Denies dyspnea and Denies other (palpitations) Resp Denies cough, Denies dyspnea and Denies wheezing GI Denies abdominal pain, Denies melena, Denies hematochezia, Denies change in bowel habits, Denies dyspepsia and Denies nausea Denies hematuria and Denies dysuria Musc Denies abnormal gait, Denies myalgias, Denies arthralgias, Denies numbness and Denies tingling Skin/Breast Denies rash, Denies unusual bruising and Denies wounds Neuro Denies abnormal gait, Denies dizziness, Denies headache(s), Denies memory loss, Denies numbness, Denies Sensory deficit (Neuro), Denies tingling and Denies weakness Psych Denies anxiety, Denies depression and Denies memory loss Endo Denies cold intolerance, Denies fatigue, Denies heat intolerance, Denies polydipsia and Denies polyuria Ricardo/Lymph Denies easy bleeding and Denies easy bruising Aller/Immun Denies wheezing Physical exam (Primary Care) Vital Signs: Last Vital Signs Temp 97.9 F 10/01/25 10:56 Pulse 80 10/01/25 10:56 Resp 16 10/01/25 10:56 BP 110/63 10/01/25 10:56 Pulse Ox 99 10/01/25 10:56 Oxygen Delivery Method Room Air 10/01/25 10:56 BMI result Body Mass Index 23.1 Tobacco/Smoking Status: Tobacco use Status Tobacco use date assessed 10/01/25 10/01/25 10:59 Patient Tobacco Use Status Former Tobacco user 10/01/25 10:53 e-Cigarette/Vaping Use Never Used 10/01/25 10:53 PHQ-9: PHQ-9 Score PHQ-9: Total score 0 10/01/25 10:53 Thrive Assessment: Date of Thrive Assessment Date Thrive assessed 11/24/24 10/01/25 10:53 Currently or been in a relationship where the following occur: I choose not to answer Const Other: General: no acute distress, well developed, alert and awake Nutritional Appearance: well nourished Orientation/consciousness: patient oriented x3 HENMT Head: Yes normocephalic and Yes atraumatic Ears: hearing grossly normal bilaterally and TM's normal bilaterally General nose exam: Normal external nose present and Normal nares present Mouth: Normal oral and palatal mucosa present and moist mucous membranes Teeth and gingiva: dentition normal Throat: Yes oropharynx normal Eyes Pupils: Equal, round and reactive pupils present and Pupil accommodation reflex normal EOM: EOMs intact bilaterally Neck Neck: Yes normal visual inspection, Yes no lymphadenopathy and Yes trachea midline Thyroid: Thyroid normal Carotids: no bruits Lymphatic: no lymphadenopathy noted Chest Chest palpation & inspection: normal inspection of the chest Resp Effort & Inspection: normal respiratory effort Auscultation: clear to auscultation bilaterally Cardio Rate: regular rate Rhythm: regular rhythm Heart sounds: S1 normal heart sound present, S2 normal heart sound present, no gallops, no murmurs and no rubs Bruits: no abdominal aortic bruits and no carotid bruits GI Palpation (GI): No Abdominal aortic bruit present, Soft to palpation, nontender, No hepatosplenomegaly present and No Rebound tenderness present Auscultation: normal bowel sounds General: Yes no CVA tenderness Back/Spine/Pelvis Back: no CVA tenderness Cervical Spine: cervical ROM normal and No Cervical spine tenderness Thoracic/Lumbar Spine: thoraco-lumbar ROM normal, No pain with thoraco-lumbar ROM, No thoracic spinal tenderness and No lumbar spinal tenderness Skin General: warm and dry. Normal skin color. Normal skin turgor Neuro General: patient oriented x3, gait normal and CN's II-XI intact bilaterally Cranial nerves: Yes Equal, round and reactive pupils present Cognition (Neuro): normal cognition Gait exam (Neuro): Normal gait present Motor exam (neuro): 5/5 motor strength present throughout Sensory Exam: No Sensory deficit (Neuro) Deep tendon reflexes (DTR's): Right patellar reflex intensity grade: 2+ and Left patellar reflex intensity grade: 2+ Extrem General: Yes normal to inspection, No edema and No calf tenderness Psych Appearance: grossly normal Affect: normal affect Attitude: cooperative Thought process: Normal thought process present Coding Level of Care Code Est Pt Level 4 (61610) Diagnoses Speech abnormality R47.9 Anxiety F41.9 Assessment & Plan Assessment & Plan (1) Speech abnormality: Code(s): R47.9 - Unspecified speech disturbances Category: Medical Plan: Patient notes that she has been having difficulty expressing herself in a organized way, ever since i remember myself. She reports difficulty with expression in both Portuguese and Barbadian (her [place] language). She thinks that her symptoms may be related to anxiety. She is only anxious when talking to people. She denies associated symptoms or depression. She has never been seen for this in the past. She has never had psychotherapy or pharmacotherapy for anxiety. However, she is open to psychotherapy for her anxiety. She notes that She had speech therapy at childhood for expression and pronunciation. She denies anxiety at this time. Normal physical exam without goal neurological deficit. No speech impairment noted. Referred to [facility] for speech evaluation. She met with our CHW who will refer her to a therapist for anxiety. Routine exercise encouraged. Follow-up with worsening or new symptoms. Verbalized understanding and agreed with the plan. (2) Anxiety: Code(s): F41.9 - Anxiety disorder, unspecified Category: Medical Plan: Plan as above.
[2025-10-01 10:56] VITALS: BP 110/63; PULSE 80; RESP 16; TEMP 36.6; O2SAT 99; BMI 23.1
--- OUTSIDE RECORDS SUMMARY | 2025-10-01 12:19 | XMS_ITS ---
Author Name [facility] Organization Unknown Care Team Organization Name Specialty Phone Email Start Date End Da te [facility] Claire Vazquez Primary Care 02/06/2023 07/20/20 [facility] Asya Ghotra Primary Care 10/09/202207/02
--- OUTSIDE RECORDS SUMMARY | 2025-10-01 12:19 | XMS_ITS | Clinical Summary ---
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 Cold sore 03/22/2022 Vitamin D deficiency 03/22/2022 Back pain 12/26/2012 Immunizations Immunization Administration Dates Next Due Hep B, Unspecified [...] = 0.6 oz pur e alcohol) Comments No Sex and Gender Information Value Date Recorded Sex Assigned at Female 03/22/2025 8:17 AM EDT Legal Sex Female 1:34 PM EST Gender Identity Female 03/22/2025 8:17 AM EDT Sexual Orientation Not on file Obstetrics History Para Term AB IAB SAB Ectopic Multiple Livin g Live Births 2 2 2 2 2 Date Outcome GA Total Labor Labor/2nd/3rd Weight Sex Type Anes PTL Mirella A1 A5 Name Clin 2011 Term 40w 0d 3204 g (113 oz) M Vag-S pont Epidur al Livin g Complications:None 2015 Term 19h 40m/ 3005 g (106 oz) M Vag-S pont Livin g 8 9 Ortiz CNM Delivery Location:[facility] Last Filed Vital Signs Vital Sign Reading Time Taken Comments Blood Pressure 110/71 05/14/2025 2:14 PM EDT Pulse 90 05/14/2025 2:14 PM EDT Temperature - - Respiratory Rate 14 03/16/2025 11:27 AM EDT Oxygen Saturation - - Inhaled Oxygen Concentration - - Weight 60.8 kg (134 lb) 05/14/2025 2:14 PM EDT Height 165.1 cm (5' 5 ) 04/20/2025 7:43 AM EDT Body Mass Index 22.3 04/20/2025 7:43 AM EDT Plan of Treatment Health Maintenance Due Date Last Done Comments Hepatitis B Vaccines (2 of 3 - 19+ 3-dose series) 07/01/2013 06/03/2013 HPV Vaccines (1 - 3-dose SCD M series) 2017 HIV Screening 10/30/2022 Social Influencers of Health Screening 10/30/2022 Depression Screening 12/02/2024 COVID-19 Vaccine (4 - 2024-2 6 season) 2025 02/02/2022, 07/25/2021, 06/27/2021 Influenza Vaccine (#1) 2025 , 11/06/2016, 11/03/2015 Cervical Cancer Screening: HPV 09/17/2027 09/17/2022 DTaP,Tdap,and Td Vaccines (3 - Td or Tdap) 07/20/2033 07/20/2023, 03/10/2013 RSV Immunization Adult Patients (1 - 1-dose 75+ series) 2065 Varicella Vaccines Aged Out 01/22/2014, 10/06/2013 No [...] 5 Years) and At-Risk Patients (6 to 49 Years) Aged Out No longer eligible b [...] Final Result * Hepatitis C Screening (09/17/2022) Pathologist [facility] Hepatitis C Screening abstracted Historical Provider HEALTH MAINTENANCE Final Result from Last 3 Months or Most Recently Relevant to Health Maintenance Insurance [facility] [employer] Care Teams Manager Product Management Relationship Specialty Start Date End Date Carolina Jeffery FNP [address] [place] [phone] PCP - General Family Medicine 03/16/25
--- OUTSIDE RECORDS SUMMARY | 2025-10-01 12:19 | XMS_ITS | Clinical Summary ---
Author Organization [facility] Address [address] [place] [address] Care Team Providers Care Recyclable Materials Collector Name Role Phone Unavailable Primary Care Provider [...] (Td q 10,TDAP once) 2010 Influenza vaccine 07/02/2025 Covid-19 vaccine series (2024- season) 2025 RSV Immunization (1 - 1-dose 75+ series) 2065 Meningococcal B Vaccine Aged Out No l onger eligible based on patient's age to complete this topic Meningococcal Vaccine Aged Out No john ruth eligible based on patient's age to complete this topic Pneumococcal Vaccine (2 - 49 years) Aged Out No longer eligible based on patient's age to complete this topic
--- OUTSIDE RECORDS SUMMARY | 2025-10-01 12:19 | XMS_ITS | Data Portability ---
Author Organization [facility] [address] Address [address] [place] [address] Assessment No assessment recorded. Plan of Treatment Reminders Order Date Submit Date Provider Last Modified By Organization Details Last Modified Time Details Appointments None recorded. Lab None recorded. Referral None recorded. Procedures None recorded. Surgeries None recorded. Imaging None recorded. Medication Orders valacyclovi r 1 gram tablet 2023 [facility]/Pharmacy #[id number], [address] [place], [address], 09:20:55 Patient TargetsNo targets recorded. Patient Instructions Encounter Date Encounter Id Patient Instructions Last Modified By Organization Details Last Modified Time 07/11/2024 [id number] shingles: care instructions [email or web address] Not available 07/11/2024 09:20:52 Reason for Referral None Reported. Problems Name Problem SNOMED Code Status Onset Date Resolution Date Notes Provider Name and Address Organization Details Recorded Time Herpes zoster 8830500 Active 024 Claudia Jennings NP [facility] [place], [address] , [facility] 07/11/2024 09:19:43 Problem [...] verbal numeric rating [Score] - Reported Systolic And Diastolic Provider Name and Address Organization Details Last Updated DateTime 4 167.64 cm 27.6 kg/m2 49020.3 g 99 % 99 % 79 /min 98.3 [degF] 7 117/76 mm[Hg] Mely Hardin PA - [facility] 4 08:36:39 Social History Question Answer Notes LastModified by [employer] Details LastModified Time Have You Had A Flu Shot This Season? Yes Information no t available 07/11/2024 If No, Would You Like A Flu Shot Today? No Information not available 07/11/2024 What Is Your Relationship Status? Information not available 07/11/2024 Are You Passively Exposed To Smoke? No Information no t available 07/11/2024 Have You Recently Traveled Abroad? No Information not available 07/11/2024 Sex: Unknown Functional Status Question Answer Note LastModified by [employer] Details LastModified Time Do you use any illicit or recreational drugs? No Information not available 07/11/2024 Do you or have you ever used any other forms of tobacco or nicotine? No Information not available 07/11/2024 What is your level of alcohol consumption? None Information not available 07/11/2024 Are you currently employed? Yes Information not available 07/11/2024 Mental Status None recorded. Family History Nothing Reported. Medical History No medical history recorded. Gynecological History Statement/Question Response Date of LMP 07/01/2024 Is there any chance of ? No LMP N/A Obstetrics History GPAL:G 0 P 0 0 0 0 Past Encounters Encounter ID Performer Location Encounter Start Date Encounter Closed Date Diagnosis/Indication Diagnosis SNOMED-CT Code Diagnosis ICD10 Code Diagnosis IMO Codes Diagnosis Note [id number] [address] [address] [place] [address] 08/11/2020 17:17:56 08/11/2020 17:53:[id number] [place] [address] [address] [address] 01/11/2022 15:05:53 01/11/2022 17:40:[id number] [place] [address] [address] [address] 02/03/2020 11:44:52 02/03/2020 13:18:39 [id number] Claudia Jennings, LINDSEY [address] [address] 07/11/2024 08:18:40 07/11/2024 09:22:45 Herpes zoster 2938751 B02.9 Be safe with medicines. Take your [...] Recorded Advance Directives Directive None Recorded Payers Insurance Date Sequence Insurance Name Policy Number Policy Grewal Covered Member ID Grewal Member ID Guarantor Name 08/07/2024 1 [facility] [id number] Carissa Hilario [id number] 1 Carissa Hilario Notes Date Note Type Note Provider Name and Address Organization Details Recorded Time 07/11/2024 text/html Skin Redness UCReported by PatientSkin Redness UCFor quality, patient reportspainful,eryth ematous, andraised. For severity, patient reportsmoderate. For alleviating factors, patient reportsnothing gives relief. For duration, patient reports2 weeks. For onset, patient reportsgradual onset. For symptoms, patient reportsno fever,no nausea, andno vomiting. AbscessReported by Patient 2 week ago abdominal area felt numb (right side) for 2 days, then pt noticed a rash patch (rash) right side pt was taking benadryl and hydrocortizone and didn't do nothing at all, rash travel to her spine . pt still experiencing pain abdominal are Claudia Jennings NP [address] [place], [address], [place] - [facility] 08/07/2024 20:51:10 OBGyn Episode No OBEpisode recorded.
== END 2025-10-01 12:22 | disposition home or self-care (01) ==
LOC: HO.HMCFM 10:49
PROVIDERS: PCP Nurse Practitioner Family; Visit Provider Nurse Practitioner Family
DX: R47.9 Unspecified speech disturbances (principal); F41.9 Anxiety disorder, unspecified

== ENCOUNTER → 2025-10-01 10:48 | Outpatient (BNVA) | payer OTHER, SELFPAY | PROVIDERS: PCP Nurse Practitioner Family; Visit Provider Nurse Practitioner Family | DX: F41.9 Anxiety disorder, unspecified (principal); R47.89 Other speech disturbances | CPT/HCPCS: 99212 ==